=== PATIENT | male | born 1985 | race Two or more races ===

== ENCOUNTER 2016-08-07 13:43 | Emergency (ER) | payer SELFPAY ==
[~2016-08-07] VITALS: Ht 170.2 cm; Wt 102.1 kg
[~2016-08-07 13:43] MED LIST: CEPHALEXIN500 MG ORAL; CIPRO500 MG PO
[2016-08-07] MEDS ORDERED: Norco 7.5mg/325mg tab ORAL ONE (14:30)
[2016-08-07] MEDS ORDERED: Dexamethasone 4mg/ml vial IM ONE (14:30)
[2016-08-07 14:55] VITALS: BP 103/87
[2016-08-07 15:04] LABS: BASOPHILS % (AUTO) 0.8 % (0.0-2.0); EOSINOPHILS % (AUTO) 0.3 % (0.0-3.0); LYMPHOCYTES % (AUTO) 11.4 % (20.0-45.0); MEAN CORPUSCULAR HEMOGLOBIN 29.9 PG (27.0-31.0); MEAN CORPUSCULAR HGB CONC 32.4 G/DL (32.0-36.0); MEAN CORPUSCULAR VOLUME 93 FL (80-99); MEAN PLATELET VOLUME 7.5 FL (6.5-10.1); NEUTROPHILS % (AUTO) 83.5 % (45.0-75.0); PLATELET COUNT 274 K/UL (150-450); RED BLOOD COUNT 4.83 M/UL (4.70-6.10); RED CELL DISTRIBUTION WIDTH 11.7 % (11.6-14.8); WHITE BLOOD COUNT 12.1 K/UL (4.8-10.8)
--- NOTE | 2016-08-07 15:26 | Emergency Room Report ---
History of Present Illness General Chief Complaint: Sore Throat Source: Patient Present Illness HPI 31-year-old male presents emergency department complaining of 10 out of 10 in severity the sided sore throat pain that has been progressive x2 days with difficulty swallowing today patient also reports swelling of his tonsils with fevers that are only minimally responsive to Tylenol. Patient states he last took Tylenol this morning. he also reports change in his voice. he denies cough denies headache denies nausea vomiting, abdominal pain or rashes. Denies CP, Palpitations, LOC, AMS, dizziness, Changes in Vision, Sensation, paresthesias, or a sudden severe headache. Allergies: Coded Allergies: No Known Allergies (Unverified , 02/12/13) Patient History Past Medical History: see triage record Past Surgical History: none Pertinent Family History: none Immunizations: UTD Reviewed Nursing Documentation: PMH: Agreed, PSxH: Agreed Nursing Documentation-PMH Past Medical History: No Stated History Review of Systems All Other Systems: negative except mentioned in HPI Physical Exam Vital Signs Date Time Temp Pulse Resp B/P Pulse Ox O2 Delivery O2 Flow Rate FiO2 08/07/16 14:12 101.3 109 20 103/87 98 Room Air Sp02 EP Interpretation: reviewed, normal General Appearance: no apparent distress, alert, GCS 15, non-toxic Head: normocephalic, atraumatic Eyes: bilateral eye PERRL, bilateral eye normal inspection ENT: hearing grossly normal, normal pharynx, no angioedema, normal voice, TMs + canals normal, uvula midline, tonsillar swelling, pharyngeal erythema, other - posterior pharynx swelling on the left side. Neck: full range of motion, no meningismus, no bony tend, supple/symm/no masses Respiratory: chest non-tender, lungs clear, normal breath sounds, no respiratory distress, no retraction, speaking full sentences Cardiovascular #1: regular rate, rhythm, no edema, normal capillary refill Musculoskeletal: back normal, gait/station normal, normal range of motion, non- tender Neurologic: alert, oriented x3, responsive, motor strength/tone normal, sensory intact, speech normal Psychiatric: judgement/insight normal, memory normal, mood/affect normal, no suicidal/homicidal ideation Skin: normal color, no rash, warm/dry, well hydrated Lymphatic: no adenopathy Medical Decision Making PA Attestation Dr. pineda is my supervising Physician whom patient management has been discussed with. Diagnostic Impression: Primary Impression: Pharyngitis, acute Qualified Codes: J02.0 - Streptococcal pharyngitis ER Course Pt. presents to the ED c/o : sore throat, tonsillar swelling with fevers, and chills progressive x 3 days. Ddx considered but are not limited to: pharyngitis, strep, [employer], ludwigs angina, URI Vital signs: are WNL, pt. is afebrile H&PE are most consistent with: pharyngitis presumed strep. ORDERS: -CBC: elevated wbcs 12.2 - BMP: good renal function, electrolytes ok. pt is a candidate for IV contrast. - CT neck Soft Tissue with contrast: bilateral tonsillar swelling with low defined attenuation areas within, early abscess formation no completely r/o - per official radiology report. ED INTERVENTIONS: -Barrow PO -Decadron IM DISCHARGE: At this time pt. is stable for d/c to home. Will provide printed patient care instructions, and any necessary prescriptions. Care plan and follow up instructions have been discussed with the patient prior to discharge. Labs Test 08/07/16 14:51 White Blood Count 12.1 K/UL (4.8-10.8) Red Blood Count 4.83 M/UL (4.70-6.10) Hemoglobin 14.5 G/DL (14.2-18.0) Hematocrit 44.7 % (42.0-52.0) Mean Corpuscular Volume 93 FL (80-99) Mean Corpuscular Hemoglobin 29.9 PG (27.0-31.0) Mean Corpuscular Hemoglobin Concent 32.4 G/DL (32.0-36.0) Red Cell Distribution Width 11.7 % (11.6-14.8) Platelet Count 274 K/UL (150-450) Mean Platelet Volume 7.5 FL (6.5-10.1) Neutrophils (%) (Auto) 83.5 % (45.0-75.0) Lymphocytes (%) (Auto) 11.4 % (20.0-45.0) Monocytes (%) (Auto) 4.0 % (1.0-10.0) Eosinophils (%) (Auto) 0.3 % (0.0-3.0) Basophils (%) (Auto) 0.8 % (0.0-2.0) Sodium Level 138 mEQ/L (135-145) Potassium Level 4.0 mEQ/L (3.4-4.9) Chloride Level 95 mEQ/L (98-107) Carbon Dioxide Level 28 mEQ/L (20-30) Anion Gap 15 (5-15) Blood Urea Nitrogen 9 mg/dL (7-23) Creatinine 1.0 mg/dL (0.7-1.2) Estimat Glomerular Filtration Rate > 60 mL/min (>60) Glucose Level 134 mg/dL (74-106) Calcium Level 9.8 mg/dL (8.6-10.2) Last Vital Signs Date Time Temp Pulse Resp B/P Pulse Ox O2 Delivery O2 Flow Rate FiO2 08/07/16 14:55 101.3 102 20 103/87 98 Room Air Disposition: HOME, SELF-CARE Condition: Stable Scripts Hydrocodone Bit/Acetaminophen 5-325* (NORCO 5-325*) 1 Each Tablet 1 TAB ORAL Q6H Y for For Pain, #7 TAB 0 Refills Prov: Jackie Almanza 08/07/16 Amoxicillin* (AMOXIL*) 500 Mg Capsule 500 MG ORAL EVERY 8 HOURS for 10 Days, #30 CAP Prov: Jackie Almanza 08/07/16 Referrals: NOT CHOSEN IPA/MD,REFERRING (PCP) Patient Instructions: Strep Throat Additional Instructions: Take medications as directed. Follow up with PCP in 3-5 days Return sooner to ED if new symptoms occur, or current symptoms become worse. Do not drink alcohol, drive, or operate heavy machinery while taking Barrow as this may cause drowsiness. - Please note that this Emergency Department Report was dictated using [email or web address] specialist technology software, occasionally this can lead to erroneous entry secondary to interpretation by the dictation equipment. Jackie Almanza Aug 07, 2016 15:26
[2016-08-07 15:32] LABS: ANION GAP 15 (5-15); CALCIUM 9.8 mg/dL (8.6-10.2); CARBON DIOXIDE 28 mEQ/L (20-30); CHLORIDE 95 mEQ/L (98-107); GLOMERULAR FILTRATION RATE > 60 mL/min (>60); HEMOLYSIS 3; SODIUM 138 mEQ/L (135-145)
--- NOTE | 2016-08-07 16:49 | Diagnostic Imaging Report ---
Indication: Sort throat, left-sided neck pain Technique: IV administration nonionic contrast. Spiral acquisitions obtained through the neck. Multiplanar reconstructions were generated. Total dose length product 624 mGycm. CTDIvol(s) 8, 64, 19 mGy. Dose reduction achieved using automated exposure control Comparison: None Findings: Slight prominence to the adenoids is noted. There is bilateral tonsillar hypertrophy. There are somewhat ill-defined areas of low attenuation within the tonsils, particularly the left, without rim enhancement. No prevertebral soft tissue swelling. The hypopharynx and larynx are unremarkable. The trachea is unremarkable. There is bilateral lymphadenopathy, largest jugulodigastric node on the left measuring 3 cm long axis dimension, largest on the right measuring 3.1 cm long axis dimension. There are prominent anterior and posterior triangle nodes also present bilaterally. The salivary glands are unremarkable. The thyroid demonstrates upper pole calcifications bilaterally, no discrete mass. Included lung apices are clear. There is left maxillary sinus polyposis versus mucous retention cyst. The dentition is intact. The bones demonstrate loss of normal cervical lordosis, are otherwise unremarkable. The upper mediastinum is unremarkable, although imaging is somewhat degraded by image noise. The included orbits and included intracranial structures are unremarkable. Impression: Bilateral tonsillar hypertrophy. Ill-defined low-attenuation areas within the tonsils bilaterally may reflect phlegmon or images be artifactual, but early abscess formation not completely ruled out. No definite findings to suggest acute abscess, however. Bilateral cervical lymphadenopathy. Nonspecific as regards etiology but given stated clinical history suspect reactive. Left maxillary sinus disease The CT scanner at [facility] is accredited by the [employer] and the scans are performed using protocols designed to limit radiation exposure to as low as reasonably achievable to attain images of sufficient resolution adequate for diagnostic evaluation. Bleed
[2016-08-07] MEDS ORDERED: NORCO 5-325 TA1 EACH ORAL (16:58)
[2016-08-07] MEDS ORDERED: AMOXICILLIN500 MG ORAL (16:58)
[2016-08-07 17:14] VITALS: BP_SYST 102; BP_SYST 103; BP_DIAS 85; BP_DIAS 87
== END 2016-08-07 17:15 | disposition home or self-care (01) ==
LOC: EMR 15:09
DX: J02.0 Streptococcal pharyngitis (principal)
CPT/HCPCS: 36415; 70491; 80048; 85025; 96372; 99284; J1100; Q9967

== ENCOUNTER 2016-08-11 11:30 | Emergency (ER) | payer SELFPAY ==
[~2016-08-11] VITALS: Ht 170.2 cm; Wt 106.6 kg
[~2016-08-11 11:30] MED LIST changes: +AMOXICILLIN500 MG ORAL; +NORCO 5-325 TA1 EACH ORAL
[2016-08-11 11:49] VITALS: BP 157/96
[2016-08-11] MEDS ORDERED: Unasyn 3gm Inj IV ONE (12:00)
[2016-08-11] MEDS ORDERED: Dexamethasone 4mg/ml vial IVP ONE (12:00)
[2016-08-11] MEDS ORDERED: Ketorolac 30mg Inj IV ONE (12:00)
[2016-08-11] MEDS ORDERED: Unasyn 3gm Inj ONE (12:04)
[2016-08-11 12:15] LABS: MEAN CORPUSCULAR HGB CONC 33.1 G/DL (32.0-36.0); MEAN CORPUSCULAR VOLUME 90 FL (80-99); PLATELET COUNT 292 K/UL (150-450); RED BLOOD COUNT 4.83 M/UL (4.70-6.10); RED CELL DISTRIBUTION WIDTH 11.4 % (11.6-14.8); WHITE BLOOD COUNT 14.4 K/UL (4.8-10.8)
[2016-08-11] MEDS ORDERED: Unasyn 3gm/NS 110ml IVPB ONE ×2 (12:15)
[2016-08-11 12:35] LABS: ANION GAP 14 (5-15); CALCIUM 9.3 mg/dL (8.6-10.2); CARBON DIOXIDE 27 mEQ/L (20-30); CHLORIDE 93 mEQ/L (98-107); GLOMERULAR FILTRATION RATE > 60 mL/min (>60); HEMOLYSIS 8; POTASSIUM 4.1 mEQ/L (3.4-4.9); SODIUM 134 mEQ/L (135-145)
--- NOTE | 2016-08-11 12:45 | Emergency Room Report ---
History of Present Illness General Chief Complaint: Upper Respiratory Illness Source: Patient Present Illness HPI Patient presents with complaints of sore throat was here recently with similar complaints Had fairly extensive workup including imaging study obtained Patient reports that he continues to feel pain with swallowing off-and-on fevers at home Denies any chest pain or shortness of breath pain is 8/10 worse with swallowing Denies any recent travel denies any posterior neck pain denies any photophobia Has a mild headache as well Patient reports being on the amoxicillin at this time Allergies: Coded Allergies: No Known Allergies (Unverified , 02/12/13) Patient History Past Medical History: see triage record Pertinent Family History: none Reviewed Nursing Documentation: PMH: Agreed, PSxH: Agreed Nursing Documentation-PMH Past Medical History: No Stated History Review of Systems All Other Systems: negative except mentioned in HPI Physical Exam Vital Signs Date Time Temp Pulse Resp B/P Pulse Ox O2 Delivery O2 Flow Rate FiO2 08/11/16 11:44 102.9 116 16 157/96 100 Room Air Sp02 EP Interpretation: reviewed, normal General Appearance: well appearing, no apparent distress Head: normocephalic, atraumatic Eyes: bilateral eye EOMI, bilateral eye PERRL ENT: hearing grossly normal, TMs + canals normal, uvula midline, pharyngeal erythema, tonsillar exudate, other - Otherwise no change in voice, no signs of any peritonsillar abscess Neck: full range of motion, supple, no meningismus, no bony tend Respiratory: lungs clear, normal breath sounds, no rhonchi, no respiratory distress, no retraction, no accessory muscle use Cardiovascular #1: normal peripheral pulses, regular rate, rhythm, no edema, no gallop, no JVD, no murmur Gastrointestinal: normal bowel sounds, non tender, soft, no mass, no organomegaly, non-distended, no guarding, no hernia, no pulsatile mass, no rebound Genitourinary: no CVA tenderness Musculoskeletal: normal inspection Neurologic: oriented x3, responsive, first cook III-XII nml as tested, motor strength/ tone normal, sensory intact Psychiatric: mood/affect normal Skin: normal color, no rash, warm/dry, palpation normal Lymphatic: normal inspection, no adenopathy Medical Decision Making Diagnostic Impression: Primary Impression: Pharyngitis ER Course Patient presents with evidence of fairly severe pharyngitis likely strep throat Uvula is midline Patient has CT from 2 days ago with evidence of possible early abscess, but there was a fairly nonspecific finding patient's airway appears patent He was given a dose of antibiotics and IV observed for several hours At this time in discussion with family Patient has option of admission to the hospital further IV antibiotics Given the lack of any other risk factors and the patient's age I feel that he would be appropriate for change in antibiotics and continued outpatient consideration Patient and the family for comfortable with this he does feel significantly better If there is any continued worsening patient will return Otherwise at this time repeat imaging was not obtained the patient discharged in significantly improved condition Labs Test 08/11/16 12:04 White Blood Count 14.4 K/UL (4.8-10.8) Red Blood Count 4.83 M/UL (4.70-6.10) Hemoglobin 14.5 G/DL (14.2-18.0) Hematocrit 43.7 % (42.0-52.0) Mean Corpuscular Volume 90 FL (80-99) Mean Corpuscular Hemoglobin 30.0 PG (27.0-31.0) Mean Corpuscular Hemoglobin Concent 33.1 G/DL (32.0-36.0) Red Cell Distribution Width 11.4 % (11.6-14.8) Platelet Count 292 K/UL (150-450) Mean Platelet Volume 7.0 FL (6.5-10.1) Neutrophils (%) (Auto) % (45.0-75.0) Lymphocytes (%) (Auto) % (20.0-45.0) Monocytes (%) (Auto) % (1.0-10.0) Eosinophils (%) (Auto) % (0.0-3.0) Basophils (%) (Auto) % (0.0-2.0) Differential Total Cells Counted 100 Neutrophils % (Manual) 85 % (45-75) Lymphocytes % (Manual) 11 % (20-45) Monocytes % (Manual) 4 % (1-10) Eosinophils % (Manual) 0 % (0-3) Basophils % (Manual) 0 % (0-2) Band Neutrophils 0 % (0-8) Platelet Estimate Adequate Platelet Morphology Normal Red Blood Cell Morphology Normal Sodium Level 134 mEQ/L (135-145) Potassium Level 4.1 mEQ/L (3.4-4.9) Chloride Level 93 mEQ/L (98-107) Carbon Dioxide Level 27 mEQ/L (20-30) Anion Gap 14 (5-15) Blood Urea Nitrogen 12 mg/dL (7-23) Creatinine 1.0 mg/dL (0.7-1.2) Estimat Glomerular Filtration Rate > 60 mL/min (>60) Glucose Level 125 mg/dL (74-106) Lactic Acid Level 1.30 mmol/L (0.66-2.22) Calcium Level 9.3 mg/dL (8.6-10.2) CT/MRI/US Diagnostic Results CT/MRI/US Diagnostic Results : Impression CT neck 08/07:Impression: Bilateral tonsillar hypertrophy. Ill-defined low- attenuation areas within the tonsils bilaterally may reflect phlegmon or images be artifactual, but early abscess formation not completely ruled out. No definite findings to suggest acute abscess, however. Last Vital Signs Date Time Temp Pulse Resp B/P Pulse Ox O2 Delivery O2 Flow Rate FiO2 08/11/16 11:49 102.9 16 157/96 100 Room Air 08/11/16 11:49 116 Status: improved Disposition: HOME, SELF-CARE Condition: Improved Scripts Acetaminophen (Tylenol) 325 Mg Tablet 650 MG ORAL Q6H Y for Prn Pain/Headache/Temp > 101, #20 TAB 0 Refills Prov: KYA BEE D.O. 08/11/16 Ibuprofen* (MOTRIN*) 600 Mg Tablet 600 MG ORAL Q8H Y for For Pain, #30 TAB 0 Refills Prov: KYA BEE D.O. 08/11/16 Amoxicillin/Potassium Clav 875-125* (AUGMENTIN 875-125 TABLET*) 1 Each Tablet 1 TAB ORAL TWICE A DAY, #20 TAB Prov: KYA BEE D.O. 08/11/16 Referrals: NOT CHOSEN IPA/MD,REFERRING (PCP) Additional Instructions: Patient is provided with the discharge instructions notified to follow up with primary doctor in the next 2-3 days otherwise return to the er with any worsening symptoms. Please note that this report is being documented using DRAGON technology. This can lead to erroneous entry secondary to incorrect interpretation by the dictating instrument. KYA BEE D.O. Aug 11, 2016 12:45
[2016-08-11 13:07] LABS: BAND NEUTROPHILS % (MANUAL) 0 % (0-8); BASOPHILS % (MANUAL) 0 % (0-2); EOSINOPHILS % (MANUAL) 0 % (0-3); LYMPHOCYTES % (MANUAL) 11 % (20-45); NEUTROPHILS % (MANUAL) 85 % (45-75); PLATELET ESTIMATE ADEQUATE; PLATELET MORPHOLOGY NORMAL; TOTAL CELLS COUNTED 100
[2016-08-11] MEDS ORDERED: IBUPROFEN600 MG ORAL (14:15)
[2016-08-11] MEDS ORDERED: AUGMENTIN 875-1 EAC1 ORAL (14:15)
[2016-08-11] MEDS ORDERED: TYLENOL325 MG ORAL (14:15)
[2016-08-11 14:22] VITALS: BP 168/116
== END 2016-08-11 14:34 | disposition home or self-care (01) ==
LOC: EMR 12:03
DX: J02.9 Acute pharyngitis, unspecified (principal); R51 Headache
CPT/HCPCS: 36415; 80048; 83605; 85007; 85025; 96360; 96361; 96374; 96375; 99284; J0295; J1100; J1885

== ENCOUNTER 2017-04-03 11:17 | Emergency (ER) | payer SELFPAY ==
[~2017-04-03] VITALS: Ht 167.6 cm; Wt 108.9 kg
[~2017-04-03 11:17] MED LIST changes: +AUGMENTIN 875-1 EAC1 ORAL; +IBUPROFEN600 MG ORAL; +TYLENOL325 MG ORAL
--- NOTE | 2017-04-03 11:24 | Emergency Room Report ---
History of Present Illness General Chief Complaint: To Be Triaged Source: Patient Present Illness HPI 31-year-old male walks in with 2 days of cough and pleuritic chest pain No associated fever or chills or URI symptoms no Sick contacts, no history of asthma or COPD no Family history of asthma Allergies: Coded Allergies: No Known Allergies (Unverified , 02/12/13) Patient History Past Medical History: none Past Surgical History: none Pertinent Family History: none Social History: Denies: smoking, alcohol use, drug use Immunizations: UTD Reviewed Nursing Documentation: PMH: Agreed, PSxH: Agreed Review of Systems All Other Systems: negative except mentioned in HPI Physical Exam Sp02 EP Interpretation: reviewed, normal General Appearance: normal inspection, well appearing, no apparent distress, alert, GCS 15, non-toxic Head: normocephalic, atraumatic Eyes: bilateral eye PERRL, bilateral eye EOMI ENT: normal ENT inspection, hearing grossly normal, normal pharynx, no angioedema, normal voice, TMs + canals normal, uvula midline, moist mucus membranes Neck: normal inspection, full range of motion, supple, thyroid normal, no meningismus, no bony tend Respiratory: normal inspection, no rhonchi, no respiratory distress, no retraction, no accessory muscle use, decreased breath sounds, speaking full sentences, wheezing Cardiovascular #1: regular rate, rhythm, no edema, no JVD, normal capillary refill Gastrointestinal: normal inspection, normal bowel sounds, non tender, soft, no mass, no peritonitis, non-distended, no guarding, no hernia, no pulsatile mass Genitourinary: no CVA tenderness Musculoskeletal: normal inspection, back normal, normal range of motion, no calf tenderness, pelvis stable, Morena's Sign negative Neurologic: normal inspection, alert, oriented x3, responsive, automatic silk screen printer III-XII nml as tested, motor strength/tone normal, cerebellar normal, normal gait, speech normal Psychiatric: normal inspection, judgement/insight normal, mood/affect normal, no suicidal/homicidal ideation, no delusions Skin: normal inspection, normal color, no rash Lymphatic: normal inspection, no adenopathy Medical Decision Making Diagnostic Impression: Primary Impression: Bronchitis Additional Impressions: Cough Pleuritic chest pain Wheezing ER Course 31-year-old male with pleuritic chest pain and wheezing likely acute bronchitis Chest x-ray negative for pneumothorax, CHF or pneumonia Proved with Tylenol with codeine and albuterol nebulizer ER course: Patient has remained stable during ED stay. Patient is to be discharged to home. Prescriptions given are albuterol, tylenol #3 Patient is instructed to follow up with their primary care doctor within 5 days. Patient is instructed to follow up with *specialist within 3 days. Strict return precautions discussed with patient such as fever, chills, worsening/severe pain, nausea, vomiting, which may indicate severe illness. Patient verbalizes understanding and agrees with plan. Please note that this Emergency Department Report was dictated using GVISP 1guest relations officer technology software, occasionally this can lead to erroneous entry secondary to interpretation by the dictation equipment Rhythm Strip Diag. Results EP Interpretation: yes Rate: 95 Rhythm: NSR, no PVC's, no ectopy Chest X-Ray Diagnostic Results Chest X-Ray Diagnostic Results : # of Views/Limited/Complete: 1 View EP Interpretation: Yes Interpretation: no consolidation, no effusion, no pneumothorax, no acute cardiopulmonary disease Impression: No acute disease Electronically Signed by: Dr Carlos Guillen MD Status: improved Disposition: HOME, SELF-CARE CARLOS GUILLEN M.D. Apr 03, 2017 11:24
[2017-04-03] MEDS ORDERED: NKM (11:26)
[2017-04-03] MEDS ORDERED: Albuterol ud Inhalation HHN ONE (11:45)
[2017-04-03] MEDS ORDERED: Tylenol #3 tab (300mg/30mg) ORAL ONE (11:45)
[2017-04-03 11:50] VITALS: BP 142/88
[2017-04-03] MEDS ORDERED: VENTOLIN HFA18 GM INH (12:22)
[2017-04-03] MEDS ORDERED: ACETAMINOPHEN-1 EAC1 ORAL (12:22)
[2017-04-03 13:05] VITALS: BP 142/88
--- NOTE | 2017-04-04 05:01 | Diagnostic Imaging Report ---
Indication: Chest pain Technique: One view of the chest Comparison: none Findings: Lungs and pleural spaces are clear. Heart size is normal. Impression: No acute process
== END 2017-04-03 13:05 | disposition home or self-care (01) ==
LOC: EMR 12:15
DX: J40 Bronchitis, not specified as acute or chronic (principal); R07.81 Pleurodynia
CPT/HCPCS: 71010; 94640; 94644; 94664; 99283

== ENCOUNTER 2019-03-27 22:14 | Emergency (ER) | payer MEDICAID ==
[~2019-03-27] VITALS: Ht 172.7 cm; Wt 124.3 kg
[~2019-03-27 22:14] MED LIST changes: +ACETAMINOPHEN-1 EAC1 ORAL; +NKM; +VENTOLIN HFA18 GM INH
[2019-03-27 22:25] VITALS: BP 155/92
[2019-03-27] MEDS ORDERED: HYDROcodone/Acetamin 5/325 tab ORAL ONE (22:30)
--- NOTE | 2019-03-27 22:30 | Emergency Room Report ---
History of Present Illness General Chief Complaint: Multiple Trauma/Fall Source: Patient Present Illness [facility] This is a 33-year-old male with no past medical history. He presents with chief complaint of left chest pain. He was riding a pony yesterday. As he was getting off, his left foot got caught in the stirrup. He was falling and try to catch himself. He felt a pull to the left chest area. Since then there is some swelling in that area. Pain to the chest area. Worse with movement and inspiration. No nausea no vomiting. Pain is 9 out of 10. Denies any other trauma. No exertional component. No diaphoresis. Allergies: Coded Allergies: No Known Allergies (Unverified , 02/12/13) Patient History Past Medical History: see triage record, old chart reviewed Past Surgical History: none Pertinent Family History: none Social History: Denies: smoking Immunizations: other Reviewed Nursing Documentation: PMH: Agreed; PSxH: Agreed Nursing Documentation-PMH Past Medical History: No Stated History Review of Systems Eye: Denies: eye pain, blurred vision ENT: Denies: ear pain, nose congestion, throat swelling Respiratory: Denies: cough, shortness of breath Cardiovascular: Reports: chest pain; Denies: palpitations Gastrointestinal: Denies: abdominal pain, diarrhea, nausea, vomiting Musculoskeletal: Denies: back pain, joint pain Skin: Denies: rash Neurological: Denies: headache, numbness Endocrine: Denies: increased thirst, increased urine Hematologic/Lymphatic: Denies: easy bruising All Other Systems: negative except mentioned in HPI Physical Exam Vital Signs Date Time Temp Pulse Resp B/P (MAP) Pulse Ox O2 Delivery O2 Flow Rate FiO2 03/27/19 22:19 98.1 79 18 140/83 (102) 97 Room Air Vitals normal Sp02 EP Interpretation: reviewed, normal General Appearance: well appearing, no apparent distress, alert Head: normocephalic, atraumatic Eyes: bilateral eye PERRL, bilateral eye EOMI ENT: hearing grossly normal, normal pharynx Neck: full range of motion, supple, no meningismus Respiratory: lungs clear, normal breath sounds, other - Left chest: There is mild edema and tenderness with palpation. No crepitance. No bony tenderness. Cardiovascular #1: regular rate, rhythm, no murmur Gastrointestinal: normal bowel sounds, non tender, no mass, no organomegaly, no bruit, non-distended Musculoskeletal: back normal, normal range of motion, gait/station normal Psychiatric: mood/affect normal Procedures Incision and Drainage Incision and Drainage : Consent: Verbal Site: Left abdomen wall Blade Size: 11 I & D Procedure: betadine prep Wound Location: abdomen Anesthesia: 1% Lidocaine Volume Anesthetic (ccs): 5 Patient Tolerated: Well Complications: None Progress Area cleaned with Betadine. Local anesthetic 1% lidocaine without epinephrine. Made a 2 cm incision. Moderate amount of pus expressed. Loculated area broken up. Patient told procedure without any problem. Medical Decision Making Diagnostic Impression: Primary Impression: Abdominal wall abscess ER Course Patient with abdominal wall abscess. No deep infection. No evidence of necrotizing fasciitis. Last Vital Signs Date Time Temp Pulse Resp B/P (MAP) Pulse Ox O2 Delivery O2 Flow Rate FiO2 03/27/19 22:19 98.1 79 18 140/83 (102) 97 Room Air Status: improved Disposition: HOME, SELF-CARE Condition: Stable Scripts Hydrocodone/Acetaminophen 5-325* (HYDROCODONE/ACETAMINOPHEN 5-325*) 1 Each Tablet 1 TAB ORAL Q6H PRN for For Pain, #10 TAB 0 Refills Prov: Christ Pollard MD 03/27/19 Trimethoprim/Sulfamethoxazole 160/800* (BACTRIM DS TABLET*) 1 Each Tablet 1 TAB ORAL Q12H, #14 TAB 0 Refills Prov: Christ Pollard MD 03/27/19 Additional Instructions: Keep wound clean. Clean with hydrogen peroxide first and then apply antibiotic ointment. Follow-up with your doctor in 2 to 3 days for recheck. Return if worse. Christ Pollard MD Mar 27, 2019 22:30
[2019-03-27] MEDS ORDERED: HYDROCODON-ACE1 EA15 ORAL (23:14)
[2019-03-27] MEDS ORDERED: BACTRIM DS TAB1 EAC1 ORAL (23:14)
--- NOTE | 2019-03-27 23:21 | Diagnostic Imaging Report ---
EXAM: CT Chest Without Intravenous Contrast CLINICAL HISTORY: PAIN TECHNIQUE: Axial computed tomography images of the chest without intravenous contrast. CTDI is 39 mGy and DLP is 1888 mGy-cm. One or more of the following dose reduction techniques were used: automated exposure control, adjustment of the mA and/or kV according to patient size, use of iterative reconstruction technique. COMPARISON: No relevant prior studies available. FINDINGS: Lungs: No mass. No consolidation. Pleural space: No pneumothorax. No significant effusion. Heart: Normal heart size. No pericardial effusion. Bones/joints: No acute fracture. Soft tissues: Subcentimeter calcified thyroid gland nodule on the right side.. Vasculature: Unremarkable. No thoracic aortic aneurysm. Lymph nodes: No enlarged lymph nodes. Upper abdomen: Unremarkable. IMPRESSION: No acute intrathoracic findings. Right subcentimeter calcified thyroid gland nodule.
[2019-03-27] MEDS ORDERED: IBUPROFEN600 MG ORAL (23:32)
--- NOTE | 2019-03-27 23:32 | Emergency Room Report ---
Physical Exam Vital Signs Date Time Temp Pulse Resp B/P (MAP) Pulse Ox O2 Delivery O2 Flow Rate FiO2 03/27/19 22:19 98.1 79 18 140/83 (102) 97 Room Air Medical Decision Making Diagnostic Impression: Primary Impression: Chest wall muscle strain Qualified Codes: S29.011A - Strain of muscle and tendon of front wall of thorax, initial encounter ER Course Patient presents with a chest wall strain. No fracture no obvious tear. No hematoma. Will discharge home. CT/MRI/US Diagnostic Results CT/MRI/US Diagnostic Results : Imaging Test Ordered: CT chest Impression Per radiologist negative. Last Vital Signs Date Time Temp Pulse Resp B/P (MAP) Pulse Ox O2 Delivery O2 Flow Rate FiO2 03/27/19 23:02 98.1 03/27/19 22:25 89 18 Room Air 03/27/19 22:25 155/92 100 Disposition: HOME, SELF-CARE Condition: Stable Scripts Ibuprofen* (MOTRIN*) 600 Mg Tablet 600 MG ORAL THREE TIMES A DAY, #30 TAB 0 Refills Prov: Christ Pollard MD 03/27/19 Hydrocodone/Acetaminophen 5-325* (HYDROCODONE/ACETAMINOPHEN 5-325*) 1 Each Tablet 1 TAB ORAL Q6H PRN for For Pain, #10 TAB 0 Refills Prov: Christ Pollard MD 03/27/19 Referrals: NOT CHOSEN IPA/,REFERRING (PCP) Additional Instructions: Ice pack to the area. Follow-up with your doctor in 7 days. Return if worse. Christ Pollard MD Mar 27, 2019 23:32
[2019-03-27 23:35] VITALS: BP 149/89
== END 2019-03-27 23:36 | disposition home or self-care (01) ==
LOC: EMR 22:25
DX: S29.011A Strain of muscle and tendon of front wall of thorax, initial encounter (principal); V80.010A Animal-rider injured by fall from or being thrown from horse in noncollision accident, initial encounter; Y93.52 Activity, horseback riding; Y92.9 Unspecified place or not applicable
CPT/HCPCS: 71250; Z7502; 99284